=== PATIENT | male | born 1960 | race African-American/Black ===

== ENCOUNTER 2017-08-16 13:47 | Inpatient (IN) | payer MEDICAID, OTHER ==
[~2017-08-16] VITALS: Ht 170.2 cm; Wt 120.0 kg
[2017-08-16] MEDS ORDERED: ASPirin 81 mg TAB PO ONE (15:30)
[2017-08-16 16:15] LABS: Basophils # (auto) 0 uL; Basophils % (auto) 0.7 % (0.0-2.0); Eosinophils # (auto) 0.6 uL; Eosinophils % (auto) 11.1 % (0.0-7.0); Hematocrit 39.7 % (41.0-53.0); Mean Corpuscular Hemoglobin 28.3 pg (28.0-32.0); Mean Corpuscular Hgb Conc. 32.8 g/dL (32.0-36.0); Mean Corpuscular Volume 86.4 fL (80.0-100.0); Monocytes # (auto) 0.4 uL; Monocytes % (auto) 7.6 % (0.0-12.0); Neutrophils # (auto) 2.5 uL; Neutrophils % (auto) 44.6 % (37.0-80.0); Nucleated Red Blood Cells % 0.2 %; Platelet Count (auto) 291 10^3/uL (140-450); Red Cell Distribution Width 13.6 % (11.8-14.3); White Blood Cell 5.6 10^3/uL (4.4-10.8)
[2017-08-16 17:39] LABS: Alanine Aminotransferase 38 U/L (16-61); Albumin 3.6 g/dL (3.4-5.0); Alkaline Phosphatase 68 U/L (45-117); Anion Gap 10 (5-15); Aspartate Aminotransferase 22 U/L (15-37); Bilirubin, Total 0.3 mg/dL (0.2-1.0); Blood Urea Nitrogen 11 mg/dL (7-18); Calcium 8.5 mg/dL (8.5-10.1); Carbon Dioxide 24 mmol/L (21-32); Chloride 108 mmol/L (98-107); GFR African American 99 mL/min; GFR Non-African American 82 mL/min; Glucose 130 mg/dL (74-106); Magnesium 2.3 mg/dL (1.6-2.6); Potassium 3.2 mmol/L (3.5-5.1); Sodium 142 mmol/L (136-145); Total Protein 7.2 g/dL (6.4-8.2)
[2017-08-16 19:32] LABS: Urine Bacteria NONE SEEN /hpf (None Seen); Urine Blood TRACE /uL (Negative); Urine Mucus FEW (None Seen); Urine Specific Gravity 1.015 (1.001-1.035); Urine WBC <1 /hpf (0 - 3)
[2017-08-16] MEDS ORDERED: MORPHINE SULFATE 4 MG/ML SYR/VIAL IV PRN (21:00)
[2017-08-16] MEDS ORDERED: ACETAMINOPHEN 325 MG TAB PO PRN (21:00)
[2017-08-16] MEDS ORDERED: HYDROcodone-ACET 5/325MG TAB PO PRN (21:00)
[2017-08-16] MEDS ORDERED: DOCUSATE SOD 100 MG CAP PO PRN (21:00)
[2017-08-16] MEDS ORDERED: DEXTROSE (50%) 50ML SYRG IV PRN (21:00)
[2017-08-16] MEDS ORDERED: ONDANSETRON HCL 4 MG/2 ML VIAL IV PRN (21:00)
[2017-08-16] MEDS ORDERED: NITROGLYCERIN 0.4 MG SL TAB SL PRN (21:00)
[2017-08-16] MEDS ORDERED: LEVOFLOXACIN 500MG 100 ML IV ONE ×2 (21:00→21:43)
[2017-08-16] MEDS ORDERED: TEMAZEPAM 15 MG CAP PO PRN (21:00)
[2017-08-16 21:44] VITALS: BP 140/76
[2017-08-16] MEDS: FAMOTIDINE 20 MG TAB PO SCH (22:03)
[2017-08-16 23:11] VITALS: BP 140/80
[2017-08-16] MEDS ORDERED: AMLO5TAB2 PO (23:32)
[2017-08-16] MEDS ORDERED: PRAV20TA3 PO (23:32)
[2017-08-16] MEDS ORDERED: METF-370 PO (23:32)
[2017-08-16] MEDS ORDERED: LOSA50TA6 PO (23:32)
[2017-08-16] MEDS ORDERED: HYDR25TA4 PO (23:32)
[2017-08-16] MEDS ORDERED: POTA10TA51 PO (23:32)
[2017-08-16] MEDS: ALBUTEROL SULF 2.5 MG/0.5ML(0.5%) NEB SOLN NEB PRN (23:41)
[2017-08-16 23:52] VITALS: BP 140/80
[2017-08-17] MEDS: ACCU-CHEK COMFORT CURVE STRIP VI SCH ×3 (05:32→11:52)
[2017-08-17] MEDS: InsuLIN REG 1unit/0.01ml Soln (100units/ml) SC SCH ×3 (05:33→12:00)
[2017-08-17 07:05] LABS: Basophils # (auto) 0.1 uL; Basophils % (auto) 1.1 % (0.0-2.0); Eosinophils # (auto) 0.7 uL; Eosinophils % (auto) 11.1 % (0.0-7.0); Hematocrit 39.9 % (41.0-53.0); Hemoglobin 12.8 g/dL (13.5-17.5); Lymphocytes # (auto) 1.7 uL; Lymphocytes % (auto) 28.6 % (10.0-50.0); Mean Corpuscular Hemoglobin 27.9 pg (28.0-32.0); Mean Corpuscular Hgb Conc. 32.2 g/dL (32.0-36.0); Mean Corpuscular Volume 86.5 fL (80.0-100.0); Monocytes # (auto) 0.6 uL; Monocytes % (auto) 10.2 % (0.0-12.0); Neutrophils # (auto) 2.9 uL; Nucleated Red Blood Cells % 0.1 %; Platelet Count (auto) 267 10^3/uL (140-450); Red Blood Cells 4.61 10^6/uL (4.5-5.90); Red Cell Distribution Width 13.8 % (11.8-14.3)
[2017-08-17] MEDS: ALBUTEROL SULF 2.5 MG/0.5ML(0.5%) NEB SOLN NEB PRN ×2 (07:38→13:28)
[2017-08-17 08:49] LABS: Albumin 3.5 g/dL (3.4-5.0); Bilirubin, Total 0.3 mg/dL (0.2-1.0); Calcium 8.6 mg/dL (8.5-10.1); Potassium 3.7 mmol/L (3.5-5.1); Total Protein 6.9 g/dL (6.4-8.2)
[2017-08-17 09:00] VITALS: BP 127/75
[2017-08-17] MEDS ORDERED: LEVOFLOXACIN 500MG 100 ML IV SCH (10:00)
[2017-08-17] MEDS ORDERED: ASPirin 81 mg TAB PO SCH (10:00)
[2017-08-17] MEDS: FAMOTIDINE 20 MG TAB PO SCH ×2 (10:05→21:59)
[2017-08-17] MEDS: ENOXAPARIN SOD 40 MG/0.4 ML SYRINGE SC SCH (10:05)
[2017-08-17 13:00] VITALS: BP 134/70
[2017-08-17] MEDS ORDERED: HCTZ 25 MG TAB PO ONE (15:15)
[2017-08-17] MEDS ORDERED: metFORMIN HYDROCHLORIDE 500 MG TAB PO ONE (15:15)
[2017-08-17] MEDS ORDERED: POTASSIUM CHL 10 Meq TABLET PO ONE (15:15)
[2017-08-17 17:03] VITALS: BP 153/80
[2017-08-17 22:00] VITALS: BP 142/86
[2017-08-17] MEDS ORDERED: ATORVASTATIN 20 MG TAB PO SCH (22:00)
[2017-08-18] MEDS: ALBUTEROL SULF 2.5 MG/0.5ML(0.5%) NEB SOLN NEB PRN ×2 (04:54→09:30)
[2017-08-18 05:45] VITALS: BP 128/78
[2017-08-18 07:10] LABS: BUN/Creatinine Ratio 13.2; Calcium 9.1 mg/dL (8.5-10.1); Potassium 3.9 mmol/L (3.5-5.1)
[2017-08-18] MEDS ORDERED: metFORMIN HYDROCHLORIDE 500 MG TAB PO SCH (10:00)
[2017-08-18] MEDS ORDERED: POTASSIUM CHL 10 Meq TABLET PO SCH (10:00)
[2017-08-18] MEDS ORDERED: BUDESONIDE (INHALATION) 0.5 MG/2 ML NEB NEB SCH ×2 (10:00→12:00)
[2017-08-18] MEDS ORDERED: HCTZ 25 MG TAB PO SCH (10:00)
[2017-08-18] MEDS ORDERED: ASPirin 81 mg TAB PO SCH (10:00)
[2017-08-18 10:05] VITALS: BP 128/82
[2017-08-18] MEDS: FAMOTIDINE 20 MG TAB PO SCH (10:26)
[2017-08-18] MEDS: ENOXAPARIN SOD 40 MG/0.4 ML SYRINGE SC SCH (10:30)
[2017-08-18] MEDS ORDERED: ALBUTEROL SULF 2.5 MG/0.5ML(0.5%) NEB SOLN NEB SCH (12:00)
[2017-08-18] MEDS ORDERED: IPRATROPIUM BROM 0.5 MG/2.5ML INH SOL NEB SCH (12:00)
[2017-08-18 12:10] VITALS: BP 113/78
[2017-08-18 13:18] VITALS: BP 113/78
[2017-08-18 13:42] VITALS: BP 113/78
== END 2017-08-18 19:42 | disposition home or self-care (01) | DRG 133 ==
LOC: ER 13:47 → TELE 13:48 → TELE-WESTW 22:30
PROVIDERS: ADMIT Nurse Practitioner; ATTEND Internal Medicine
DX: J96.00 Acute respiratory failure, unspecified whether with hypoxia or hypercapnia (principal); Z68.41 Body mass index [BMI] 40.0-44.9, adult; I10 Essential (primary) hypertension; R07.89 Other chest pain; E66.01 Morbid (severe) obesity due to excess calories; E87.6 Hypokalemia; E11.9 Type 2 diabetes mellitus without complications; E78.5 Hyperlipidemia, unspecified; J45.909 Unspecified asthma, uncomplicated; M19.90 Unspecified osteoarthritis, unspecified site; Z90.49 Acquired absence of other specified parts of digestive tract
CPT/HCPCS: 36415; 71046; 80048; 80053; 80061; 81001; 82962; 83036; 83605; 83735; 83880; 84484; 85025; 85379; 87040; 93005; 93306; 94640; 94761; 96374; J1956

== ENCOUNTER 2017-09-03 16:09 | Emergency (ER) | payer MEDICAID ==
[~2017-09-03] VITALS: Ht 200.7 cm; Wt 116.6 kg
[~2017-09-03 16:09] MED LIST: AMLO5TAB2 PO; HYDR25TA4 PO; LOSA50TA6 PO; METF-370 PO; POTA10TA51 PO; PRAV20TA3 PO
[2017-09-03 21:52] LABS: Basophils # (auto) 0 uL; Basophils % (auto) 0.8 % (0.0-2.0); Eosinophils # (auto) 0.7 uL; Eosinophils % (auto) 11.4 % (0.0-7.0); Hematocrit 42.3 % (41.0-53.0); Hemoglobin 14.1 g/dL (13.5-17.5); Lymphocytes # (auto) 2.3 uL; Lymphocytes % (auto) 37.3 % (10.0-50.0); Mean Corpuscular Hemoglobin 28.6 pg (28.0-32.0); Mean Corpuscular Hgb Conc. 33.4 g/dL (32.0-36.0); Mean Corpuscular Volume 85.7 fL (80.0-100.0); Monocytes # (auto) 0.5 uL; Monocytes % (auto) 8.9 % (0.0-12.0); Neutrophils # (auto) 2.6 uL; Neutrophils % (auto) 41.6 % (37.0-80.0); Nucleated Red Blood Cells % 0.2 %; Platelet Count (auto) 277 10^3/uL (140-450); Red Blood Cells 4.93 10^6/uL (4.5-5.90); Red Cell Distribution Width 13.5 % (11.8-14.3); White Blood Cell 6.1 10^3/uL (4.4-10.8)
[2017-09-03 22:05] LABS: Anion Gap 10 (5-15); Blood Urea Nitrogen 12 mg/dL (7-18); Calcium 8.9 mg/dL (8.5-10.1); Carbon Dioxide 25 mmol/L (21-32); Chloride 104 mmol/L (98-107); Glucose 112 mg/dL (74-106); Potassium 3.6 mmol/L (3.5-5.1); Sodium 139 mmol/L (136-145)
[2017-09-03 22:08] LABS: Alanine Aminotransferase 41 U/L (16-61); Aspartate Aminotransferase 24 U/L (15-37); BUN/Creatinine Ratio 12.1; GFR African American 101 mL/min; GFR Non-African American 83 mL/min
[2017-09-03 22:20] LABS: Alkaline Phosphatase 69 U/L (45-117); Bilirubin, Total 0.5 mg/dL (0.2-1.0)
[2017-09-04 05:59] VITALS: BP 121/52
== END 2017-09-04 05:44 | disposition home or self-care (01) ==
LOC: EDBD 16:09 → ER 16:09
DX: J44.1 Chronic obstructive pulmonary disease with (acute) exacerbation (principal); J06.9 Acute upper respiratory infection, unspecified; I11.0 Hypertensive heart disease with heart failure; I50.9 Heart failure, unspecified; E11.9 Type 2 diabetes mellitus without complications; E78.5 Hyperlipidemia, unspecified; Z88.0 Allergy status to penicillin; Z88.6 Allergy status to analgesic agent
CPT/HCPCS: 36415; 71046; 80053; 83735; 83880; 84484; 85025; 93005